=== PATIENT | male | born 1985 | race Caucasian/White ===

== ENCOUNTER → 2019-07-23 | Outpatient (CLI) | payer BC ==
[~2019-07-23] MED LIST: PRED20 PO
[2019-07-23 13:53] LABS: BASOPHILS ABSOLUTE AUTO 0.05 K/mm3 (0.00-0.23); BASOPHILS PERCENT AUTO 1 % (0-2); EOSINOPHILS ABSOLUTE AUTO 0.09 K/mm3 (0.00-0.68); EOSINOPHILS PERCENT AUTO 1 % (0-6); Hematocrit 52.8 % (37.0-53.0); Hemoglobin 17.9 g/dL (13.5-17.5); IMMATURE GRAN ABSOLUTE AUTO 0.01 K/mm3 (0.00-0.10); IMMATURE GRAN PERCENT AUTO 0 % (0-1); LYMPHOCYTES ABSOLUTE AUTO 2.29 K/mm3 (0.84-5.20); LYMPHOCYTES PERCENT AUTO 31 % (21-46); MONOCYTES ABSOLUTE AUTO 0.48 K/mm3 (0.16-1.47); MONOCYTES PERCENT AUTO 7 % (4-13); Mean Corpuscular HGB 32.6 pg (26.0-34.0); Mean Corpuscular HGB Conc 33.9 g/dL (31.5-36.5); Mean Corpuscular Volume 96 fL (80-100); Mean Platelet Volume 11.3 fL (9.1-12.4); NEUTROPHILS ABSOLUTE AUTO 4.48 K/mm3 (1.96-9.15); NEUTROPHILS PERCENT AUTO 61 % (41-73); Platelet Count 274 K/mm3 (150-400); RDW Coefficient Variation 12.9 % (11.7-14.2); RDW Standard Deviation 46.5 fL (35.1-46.3); Red Blood Cell Count 5.49 M/mm3 (4.30-5.90)
[2019-07-23 19:24] LABS: Alanine Aminotransfer (ALT/SGP 35 U/L (12-78); Albumin, Blood 4.3 g/dL (3.4-5.0); Albumin/Globulin Ratio 1.4 (0.8-1.8); Alk Phos 92 U/L (50-136); Anion Gap 6 mmol/L (6-16); Aspartate Aminotrans (AST/SGOT 22 U/L (12-37); Bilirubin, Total 1.5 mg/dL (0.1-1.0); Blood Urea Nitrogen 8 mg/dL (8-24); Bun/Creatinine Ratio 7.8 (12.0-20.0); CHOL/HDL RATIO 3.2; CO2, Blood 27 mmol/L (21-32); Calcium, Blood 9.5 mg/dL (8.5-10.1); Chloride, Blood 106 mmol/L (98-108); Cholesterol 188 mg/dL (50-200); Creatinine, Blood 1.03 mg/dL (0.60-1.20); Free Thyroxine 1.06 ng/dL (0.70-1.60); Globulin, Blood 3.1 g/dL (2.2-4.0); Glomerular Filtration Rate >60 (60-); Glucose, Blood 91 mg/dL (70-99); HDL Cholesterol 59 mg/dL (>39); Low Density Lipoprotein Chol 117 mg/dL (0-110); Potassium, Blood 4.1 mmol/L (3.5-5.5); Sodium, Blood 139 mmol/L (136-145); Thyroid Stimulating Hormone 0.874 uIU/mL (0.360-4.800); Total Protein, Blood 7.4 g/dL (6.4-8.2); Triglycerides 62 mg/dL (30-140); Very Low Density Lipoprot Chol 12 mg/dL (6-28)
== END | disposition home or self-care (01) ==
LOC: LAB 13:00 → LAB SHORT 13:00
PROVIDERS: Hospitalist
DX: I10 Essential (primary) hypertension (principal)
CPT/HCPCS: 80053; 80061; 84439; 84443; 85025

== ENCOUNTER → 2021-12-04 | Outpatient (CLI) | payer BC ==
[2021-12-05 08:11] LABS: A/G RATIO 2.3 (1.2-2.2); BILIRUBIN, TOTAL 1.1 mg/dL (0.0-1.2); CALCIUM, SERUM 9.7 mg/dL (8.7-10.2); CREATININE, SERUM 0.94 mg/dL (0.76-1.27); GLOBULIN, TOTAL 2.1 g/dL (1.5-4.5); POTASSIUM, SERUM 4.1 mmol/L (3.5-5.2); PROTEIN, TOTAL, SERUM 6.9 g/dL (6.0-8.5)
== END ==
LOC: LAB SHORT 14:15
PROVIDERS: Hospitalist
DX: I10 Essential (primary) hypertension (principal)
CPT/HCPCS: 80053